=== PATIENT | male | born 1950 | race Caucasian/White ===

== ENCOUNTER 2017-05-23 08:24 | Emergency (ER) | payer MEDICARE ==
--- NOTE | 2017-05-23 08:59 | ER Document Report ---
ED Medical Screen (RME) - General Chief Complaint: Nose Bleed Stated Complaint: NOSE BLEED Time Seen by Provider: 05/23/17 08:55 TRAVEL OUTSIDE OF THE [place] IN LAST 30 DAYS: No - HPI Notes: 05/23/17 08:57 I performed a quick evaluation of a 66-year-old male with history of epistaxis returns today with complaints of epistaxis that started in the right nares approximately 3 years ago. Patient has been seen 3 times in [place] ER for this similar complaint. Patient was seen by Dr. Dahl in , ENT, for a follow-up. Patient states he placed a nasal packing. Is concerned because he is bleeding through the packing. Reports that his ENT doctor told him he had a bone spur in his right nares yesterday. Denies being on blood thinners, but states he has been on Plavix for a long time but recently stopped taking Plavix. Reports he does take a baby aspirin daily. Denies any dizziness, lightheadedness, blurred vision, double vision, loss of vision. Denies any fevers or chills. Denies any chest pain, shortness of breath, nausea, vomiting , to face or any part of body. Diarrhea. Denies any trauma. I have greeted and performed a rapid initial assessment of this patient. A comprehensive ED assessment and evaluation of the patient, analysis of test results and completion of medical decision making process will be conducted by an additional ED providers. 05/23/17 09:25 - Related Data Allergies/Adverse Reactions: carvedilol [From Coreg] Allergy (Verified 05/23/17 08:27) naproxen [From Naprosyn] Allergy (Verified 05/23/17 08:27) contrast media Allergy (Uncoded 05/23/17 08:27) Physical Exam - Vital signs Vitals: Temp Pulse Resp BP Pulse Ox 97.4 F 96 20 118/63 94 05/23/17 08:30 05/23/17 08:30 05/23/17 08:30 05/23/17 08:30 05/23/17 08:30 Course - Vital Signs Vital signs: Temp Pulse Resp BP Pulse Ox 97.4 F 96 20 118/63 94 05/23/17 08:30 05/23/17 08:30 05/23/17 08:30 05/23/17 08:30 05/23/17 08:30
[2017-05-23 09:37] LABS: ABSOLUTE BASOPHILS # (AUTO) 0.1 10^3/uL (0.0-0.2); ABSOLUTE EOSINOPHILS # (AUTO) 0.2 10^3/uL (0.0-0.6); ABSOLUTE LYMPHOCYTES (AUTO) 1.2 10^3/uL (0.5-4.7); ABSOLUTE MONOCYTES (AUTO) 1.1 10^3/uL (0.1-1.4); ABSOLUTE NEUT (AUTO) 8.3 10^3/uL (1.7-8.2); BASOPHILS % (AUTO) 0.8 % (0-2); EOSINOPHILS % (AUTO) 1.8 % (0-6); HEMATOCRIT 40.2 % (37.9-51.0); HEMOGLOBIN 13.1 g/dL (13.5-17.0); LYMPHOCYTES % (AUTO) 11.1 % (13-45); MEAN CORPUSCULAR HEMOGLOBIN 27.6 pg (27.0-33.4); MEAN CORPUSCULAR HGB CONC 32.5 g/dL (32.0-36.0); MEAN CORPUSCULAR VOLUME 85 fl (80-97); MONOCYTES % (AUTO) 10.2 % (3-13); PLATELET COUNT 230 10^3/uL (150-450); RED BLOOD COUNT 4.74 10^6/uL (4.35-5.55); RED CELL DISTRIBUTION WIDTH 15.5 % (11.5-14.0); SEGMENTED NEUTROPHILS % (AUTO) 76.1 % (42-78); TOTAL CELLS COUNTED % (AUTO) 100 %; WHITE BLOOD COUNT 10.9 10^3/uL (4.0-10.5)
[2017-05-23 10:21] LABS: INTERNATIONAL RATION (INR) 0.91; PARTIAL THROMBOPLASTIN TIME 30.2 SEC (23.5-35.8); PROTHROMBIN TIME 12.9 SEC (11.4-15.4)
--- NOTE | 2017-05-23 14:14 | ER Document Report ---
ED ENT - General Chief Complaint: Nose Bleed Stated Complaint: NOSE BLEED Time Seen by Provider: 05/23/17 08:55 Notes: The patient is a 66-year-old male, past medical history frequent nosebleeds over the past 10 days, CAD w/ stents (on 81 mg ASA). He saw Dr. Dahl, [facility], yesterday and had nasal packing placed. He stopped taking his daily Plavix once these nosebleeds started. He was told to use Afrin spray once nosebleeds began. On arrival to the ER, there is no active nosebleeds. Denies lightheadedness, syncope, nasal trauma or fever. TRAVEL OUTSIDE OF THE [place] IN LAST 30 DAYS: No - Related Data Allergies/Adverse Reactions: carvedilol [From Coreg] Allergy (Verified 05/23/17 08:27) naproxen [From Naprosyn] Allergy (Verified 05/23/17 08:27) contrast media Allergy (Uncoded 05/23/17 08:27) Past Medical History - General Information source: Patient - Social History Smoking Status: Current Every Day Smoker Frequency of alcohol use: Occasional Drug Abuse: None Family History: Reviewed & Not Pertinent Patient has suicidal ideation: No Patient has homicidal ideation: No Renal/ Medical History: Denies: Hx Peritoneal Dialysis Review of Systems - Review of Systems Notes: REVIEW OF SYSTEMS: CONSTITUTIONAL: -fevers, -chills EENT: -eye pain, -difficulty swallowing, -nasal congestion, +epistaxis CARDIOVASCULAR: -chest pain, -syncope. RESPIRATORY: -cough, -SOB GASTROINTESTINAL: -abdominal pain, -nausea, -vomiting, -diarrhea GENITOURINARY: -dysuria, -hematuria MUSCULOSKELETAL: -back pain, -neck pain SKIN: -rash or skin lesions. HEMATOLOGIC: -easy bruising or bleeding. LYMPHATIC: -swollen, enlarged glands. NEUROLOGICAL: -altered mental status or loss of consciousness, -headache, - neurologic symptoms PSYCHIATRIC: -anxiety, -depression. ALL OTHER SYSTEMS REVIEWED AND NEGATIVE. Physical Exam - Vital signs Vitals: Temp Pulse Resp BP Pulse Ox 97.4 F 96 20 118/63 94 05/23/17 08:30 05/23/17 08:30 05/23/17 08:30 05/23/17 08:30 05/23/17 08:30 - Notes Notes: PHYSICAL EXAMINATION: GENERAL: Well-appearing, well-nourished and in no acute distress. HEAD: Atraumatic, normocephalic. EYES: Pupils equal round and reactive to light, extraocular movements intact, sclera anicteric, conjunctiva are normal. ENT: nasal packing in right nares without active bleeding, nasal packing is not soaked with blood, oropharynx clear without exudates. Moist mucous membranes. NECK: Normal range of motion, supple without lymphadenopathy EXTREMITIES: Normal range of motion, no pitting or edema. No cyanosis. NEUROLOGICAL: Cranial nerves grossly intact. Normal speech, normal gait. Normal sensory and motor exams. PSYCH: Normal mood, normal affect. SKIN: Warm, Dry, normal turgor, no rashes or lesions noted. Course - Re-evaluation Re-evalutation: No active epistaxis in the ER. His hemoglobin is 13 and he is hemodynamically stable. He has an appointment with his ENT in [place] in 3 days. Instructed him to continue to keep the nasal packing in place and use the Afrin as instructed by his ENT. Given strict return precautions and he understands. - Vital Signs Vital signs: Temp Pulse Resp BP Pulse Ox 97.7 F 81 18 108/63 95 05/23/17 13:02 05/23/17 13:02 05/23/17 13:02 05/23/17 13:02 05/23/17 13:02 - Laboratory Result Diagrams: 05/23/17 09:18 Laboratory results interpreted by me: 05/23/17 09:18 WBC 10.9 H Hgb 13.1 L RDW 15.5 H Lymphocytes % 11.1 L Absolute Neutrophils 8.3 H Discharge - Discharge Clinical Impression: Epistaxis Condition: Stable Disposition: HOME, SELF-CARE Additional Instructions: Nosebleed Instructions There is a significant chance of re-bleeding following a nosebleed. Proper care makes this less likely. Do not touch the nose for 24 hours. Do not blow the nose forcefully for one week. After 24 hours, gently apply Vaseline ointment to both nostrils with the tip of a finger, three times a day, for one week. It's normal to have a bloody mucous discharge for a few days. If active bleeding recurs, blow all the blood from the nose, then sit quietly and pinch the nose as firmly as possible for 10 minutes. If this does not stop the bleeding, return for further care. If packing was left in the nose and it starts to come out of the nostril, either tuck it back in or cut it off. Don't pull it out. Return for recheck and removal of the packing when instructed. Persons with frequent nosebleeds should avoid aspirin (unless prescribed for another reason). Humidity in the bedroom, and petroleum jelly applied to the nostrils at night may help. Referrals: [facility] [Provider Group] - Follow up as needed
[2017-05-23 14:56] VITALS: BP 118/77
== END 2017-05-23 14:56 | disposition home or self-care (01) ==
LOC: ER 08:24
DX: R04.0 Epistaxis (principal); F17.200 Nicotine dependence, unspecified, uncomplicated; Z79.82 Long term (current) use of aspirin
CPT/HCPCS: 36415; 85025; 85610; 85730; 99283